=== PATIENT | female | born 1980 | race Caucasian/White ===

== ENCOUNTER 2019-04-27 19:01 | Emergency (ER) | payer OTHER ==
[~2019-04-27] VITALS: Ht 154.9 cm; Wt 70.8 kg
[2019-04-27 19:44] VITALS: BP 121/77; Ht 154.9 cm; Wt 70.8 kg
== END 2019-04-28 00:33 | disposition left against medical advice (07) ==
LOC: ED 19:01
DX: Z53.21 Procedure and treatment not carried out due to patient leaving prior to being seen by health care provider (principal)

== ENCOUNTER 2019-06-23 19:33 | Emergency (ER) | payer OTHER ==
[~2019-06-23] VITALS: Ht 149.9 cm; Wt 69.9 kg
[2019-06-23 19:53] VITALS: BP 114/67; Ht 149.9 cm; Wt 69.9 kg
== END 2019-06-23 22:25 | disposition home or self-care (01) ==
LOC: ED 19:33
DX: L03.116 Cellulitis of left lower limb (principal); I10 Essential (primary) hypertension; M32.9 Systemic lupus erythematosus, unspecified
CPT/HCPCS: J0696

== ENCOUNTER 2019-08-07 17:55 | Emergency (ER) | payer OTHER ==
[~2019-08-07] VITALS: Ht 154.9 cm; Wt 69.4 kg
[2019-08-07 17:59] VITALS: Ht 154.9 cm; Wt 69.4 kg
[2019-08-07 18:23] VITALS: BP 113/69
== END 2019-08-07 23:40 | disposition home or self-care (01) ==
LOC: ED 17:55
DX: L03.115 Cellulitis of right lower limb (principal); I10 Essential (primary) hypertension

== ENCOUNTER 2019-10-23 13:44 | Emergency (ER) | payer OTHER | END 2019-10-23 16:09 | disposition left against medical advice (07) | LOC: ED 13:44 | DX: Z53.21 Procedure and treatment not carried out due to patient leaving prior to being seen by health care provider (principal) ==